=== PATIENT | female | born 1990 | race Two or more races ===

== ENCOUNTER 2024-06-17 16:28 | Outpatient (CLI) | payer SELFPAY ==
[2024-06-18 21:07] LABS: Neisseria gonorrhoeae, NAA Negative (Negative)
== END 2024-06-17 23:59 | disposition home or self-care (01) ==
LOC: LAB.DROPOF 16:28
PROVIDERS: PCP Obstetrics & Gynecology; Visit Provider Obstetrics & Gynecology
DX: Z34.90 Encounter for supervision of normal pregnancy, unspecified, unspecified trimester (principal)
CPT/HCPCS: 87491; 87591